=== PATIENT | female | born 1965 ===

== ENCOUNTER 2020-02-06 17:12 | Emergency (ER) | payer SELFPAY ==
[2020-02-06 17:26] VITALS: Wt 96.8 kg
[2020-02-06] MEDS ORDERED: LISINOPRIL10 MG PO (17:29)
[2020-02-06] MEDS ORDERED: METFORMIN HCL500 M1 PO (17:29)
[2020-02-06] MEDS ORDERED: TIROSINT25 MCG PO (17:29)
[2020-02-06 18:23] LABS: HEMATOCRIT 44.3 % (36.0-48.0); HEMOGLOBIN 14.6 g/dL (12-16); LYMPHOCYTES 24.6 % (15-50); MCH 29.4 pg (26.0-34.0); MCV 89.1 fL (80.0-100.0); MEAN PLATELET VOLUME 12.1 fL (7.4-10.4); NEUTROPHILS 65.3 % (40-80); PLATELET COUNT 150 10x3/uL (130-400); RBC 4.97 10x6/uL (4.00-5.40); WBC 8.3 10x3/uL (4.8-10.8)
[2020-02-06 18:58] LABS: ANION GAP 9.4 mmol/L (8-16); CALCIUM 9.2 mg/dL (8.5-10.1); CARBON DIOXIDE 29.5 mmol/L (21.0-32.0); CREATININE - SERUM 0.9 mg/dL (0.6-1.3); POTASSIUM - SERUM 3.9 mmol/L (3.5-5.1)
[2020-02-06 19:05] LABS: BILIRUBIN - TOTAL 0.42 mg/dL (0.2-1.3); PROTEIN - SERUM 7.4 g/dL (6.4-8.2)
[2020-02-06 21:32] VITALS: BP 133/73
== END 2020-02-06 21:36 | disposition home or self-care (01) ==
LOC: D.ER 17:12
PROVIDERS: Family Medicine
DX: J06.9 Acute upper respiratory infection, unspecified (principal); I10 Essential (primary) hypertension; E11.9 Type 2 diabetes mellitus without complications; Z79.84 Long term (current) use of oral hypoglycemic drugs